=== PATIENT | female | born 1950 | race Caucasian/White ===

== ENCOUNTER 2016-12-29 11:36 | Emergency (ER) | payer MEDICARE, MEDICAID ==
[~2016-12-29 11:36] MED LIST: CALC500T19 PO; CETI5CHW PO; CIPR500T4 PO; DEPA500T3 PO; GABA300C3 PO; GABA400 PO; HCTZ50TA PO; LEVO.025 PO; MOBI15TA PO; MONT10TA2 PO; OMEP20TA39 PO; QUET100 PO; TAB-TAB PO; VALP250UDC PO; VIST50CA PO
[2016-12-29 12:56] VITALS: BP 128/68; PULSE 84; RESP 18; TEMP 98.2; O2SAT 98
[2016-12-29 12:59] VITALS: BP 128/68; PULSE 84; RESP 18; TEMP 98.2; O2SAT 98
[2016-12-29] MEDS ORDERED: VIST25CA PO (13:10)
[2016-12-29] MEDS ORDERED: SERO200T PO (13:10)
[2016-12-29] MEDS ORDERED: DEPA500T3 PO (13:10)
[2016-12-29] MEDS ORDERED: LEVO25TA4 PO (13:10)
[2016-12-29] MEDS ORDERED: MOBI15TA PO (13:10)
[2016-12-29] MEDS ORDERED: SERO100T PO (13:10)
[2016-12-29] MEDS ORDERED: OMEP20TA PO (13:10)
[2016-12-29] MEDS ORDERED: MULT1TAB46 PO (13:10)
[2016-12-29] MEDS ORDERED: GABA300C5 PO (13:10)
--- NOTE | 2016-12-29 13:29 | PD ---
HPI Chief Complaint: Psychiatric Symptoms Time Seen by Provider: 13:29 Travel History International Travel<30 days: No Contact w/Intl Traveler<30days: No Traveled to known affect area: No History of Present Illness HPI 66-year-old female with a history of hypertension, diabetes, COPD was brought to the emergency department under Brooks act for evaluation of threatening to harm someone else. Per the Brooks act report the patient made threats to harm her roommate. The patient states that she has a bad relationship with her roommate and was in an argument with him this morning and did make threats to harm him. She states she has a history of bipolar disorder. She denies any suicidal or homicidal ideations. She complains of having nasal congestion and a dry cough for the past 2 days. States that she's also had some lower extremity redness and swelling for 2 weeks, has a history of recurrent cellulitis on her legs. States that she has a remote history of DVT in the left leg. Denies any chest pain, shortness of breath, fever, chills, nausea, vomiting, abdominal pain. States she was seen at [facility] 2 weeks ago for the cellulitis on her legs and was prescribed antibiotics but was unable to get them filled due to transportation issues. No other complaints. PFSH Past Medical History Bipolar Disorder: Yes Anxiety: Yes Depression: Yes Fibromyalgia: Yes Integumentary: Yes (CELLULITIS IN LEGS ,PHLEBITIS IN LEGS) Thyroid Disease: Yes (HYPERACTIVE) ?: Not Menopausal: Yes : 2 Para: 2 Past Surgical History Section: Yes (1986) Thoracic Surgery: Yes (SPINAL FUSION 1990) Other Surgery: Yes (right carpel tunnel surgery) Social History Alcohol Use: Yes (3 DRINKS EVERY OTHER DAY) Tobacco Use: Yes (2 PPD) Substance Use: No (refuses to cooperate) Allergies-Medications (Allergen,Severity, Reaction): Coded Allergies: Amoxicillin (Verified Allergy, Severe, RASH, 12/29/16) Pharmacist - [facility] [phone] in [place], [place]. [place] (Verified Allergy, Severe, RASH, 12/29/16) Pharmacist - [facility] [phone] in [place], [place]. Reported Meds & Prescriptions Reported Meds & Active Scripts Active Reported Multi Vitamin Daily (Multiple Vitamin) 1 Tab Tab 1 Tab PO DAILY Mobic (Meloxicam) 15 Mg Tab 15 Mg PO DAILY Vistaril (Hydroxyzine Pamoate) 25 Mg Cap 50 Mg PO QID Omeprazole 20 Mg Tab 20 Mg PO DAILY Depakote ER (Divalproex Sodium) 500 Mg James 500 Mg PO DAILY Levothyroxine (Levothyroxine Sodium) 25 Mcg Tab 25 Mcg PO DAILY Seroquel (Quetiapine Fumarate) 200 Mg Tab 200 Mg PO DAILY Seroquel (Quetiapine Fumarate) 100 Mg Tab 100 Mg PO HS Gabapentin 300 Mg Cap 300 Mg PO TID Review of Systems Except as stated in HPI: all other systems reviewed are Neg Physical Exam Narrative GENERAL: Well-nourished and well-developed pleasant female patient in no acute distress who is nontoxic appearing. SKIN: Warm and dry. HEAD: Normocephalic and atraumatic. EYES: No injection, drainage, or hyphema noted. PERRLA. EOMI. ENT: No nasal drainage noted. Oropharynx is clear. NECK: Supple and the trachea is midline. CARDIOVASCULAR: Regular rate and rhythm. RESPIRATORY: Breath sounds are equal bilaterally with no accessory muscle use, wheezing, rhonchi, or crackles. GASTROINTESTINAL: Abdomen is soft, non-tender, and nondistended. MUSCULOSKELETAL: Bilateral lower extremity swelling and erythema with warmth to touch, right worse than left. Negative Mihir's sign. No obvious deformities, cyanosis, or ecchymosis is present throughout the upper and lower extremities. Patient has full range of motion without any signs of neurovascular compromise. DP pulses are 2+ bilaterally. NEUROLOGICAL: Awake, alert, and oriented. Normal speech and gait. Cranial nerves are grossly intact. Data Data Last Documented VS Vital Signs Date Time Temp Pulse Resp B/P Pulse Ox O2 Delivery O2 Flow Rate FiO2 12/29/16 12:59 82 18 12/29/16 12:59 98.2 128/68 98 Room Air Orders Complete Blood Count With Diff (12/29/16 12:39) Comprehensive Metabolic Panel (12/29/16 12:39) Psych Screen (12/29/16 12:39) Drug Screen, Random Urine (12/29/16 12:39) Alcohol (Ethanol) (12/29/16 12:39) Lactic Acid Sepsis Protocol (12/29/16 13:22) Urinalysis - C+S If Indicated (12/29/16 13:22) Chest, Single Ap (12/29/16 13:22) C-Reactive Protein (Crp) (12/29/16 13:22) Westergren Sedimentation Rate (12/29/16 13:22) Us Leg Venous Doppler Bilat (12/29/16 ) Valproic Acid (Depakene) (12/29/16 13:31) Labs Laboratory Tests Test 12/29/16 12/29/16 12/29/16 13:00 13:10 14:00 Urine Opiates Screen NEG Urine Barbiturates Screen NEG Urine Amphetamines Screen NEG Urine Benzodiazepines Screen NEG Urine Cocaine Screen NEG Urine Cannabinoids Screen NEG White Blood Count 5.4 TH/MM3 Red Blood Count 4.66 MIL/MM3 Hemoglobin 13.5 GM/DL Hematocrit 39.7 % Mean Corpuscular Volume 85.4 FL Mean Corpuscular Hemoglobin 29.0 PG Mean Corpuscular Hemoglobin 34.0 % Concent Red Cell Distribution Width 14.0 % Platelet Count 98 TH/MM3 Mean Platelet Volume 9.0 FL Neutrophils (%) (Auto) 67.0 % Lymphocytes (%) (Auto) 23.5 % Monocytes (%) (Auto) 7.9 % Eosinophils (%) (Auto) 0.9 % Basophils (%) (Auto) 0.7 % Neutrophils # (Auto) 3.6 TH/MM3 Lymphocytes # (Auto) 1.3 TH/MM3 Monocytes # (Auto) 0.4 TH/MM3 Eosinophils # (Auto) 0.0 TH/MM3 Basophils # (Auto) 0.0 TH/MM3 CBC Comment AUTO DIFF Differential Comment AUTO DIFF CONFIRMED Toxic Vacuolation PRESENT Platelet Estimate LOW Platelet Morphology Comment NORMAL Sodium Level 143 MEQ/L Potassium Level 3.9 MEQ/L Chloride Level 109 MEQ/L Carbon Dioxide Level 25.3 MEQ/L Anion Gap 9 MEQ/L Blood Urea Nitrogen 20 MG/DL Creatinine 0.74 MG/DL Estimat Glomerular Filtration 79 ML/MIN Rate Random Glucose 82 MG/DL Calcium Level 8.7 MG/DL Total Bilirubin 0.4 MG/DL Aspartate Amino Transf 13 U/L (AST/SGOT) Alanine Aminotransferase 16 U/L (ALT/SGPT) Alkaline Phosphatase 78 U/L Total Protein 7.0 GM/DL Albumin 3.4 GM/DL Ethyl Alcohol Level LESS THAN 3 MG/DL Erythrocyte Sedimentation Rate 17 mm/hr Lactic Acid Level 0.9 mmol/L Valproic Acid (Depakene) Level 35 MCG/ML MDM Medical Decision Making Medical Screen Exam Complete: Yes Emergency Medical Condition: Yes Differential Diagnosis Differential: Depression versus adjustment reaction versus anxiety versus PTSD versus psychosis NOS versus mood disorder NOS versus substance induced mood disorder versus ODD versus adjustment reaction versus schizophrenia versus bipolar disorder versus schizoaffective versus electrolyte abnormality Narrative Course Patient presents under a Brooks act. Vital signs are within normal limits. Patient states she's had nasal congestion for 2 days, lungs are clear to auscultation. She has lower extremity swelling and redness, cellulitis on the lower legs worse on the right leg than the left. We'll check labs and if these are unremarkable she can be treated with oral antibiotics. Psych screen has been ordered. CBC shows thrombocytopenia with platelets of 98, otherwise unremarkable. Sedimentation rate is within normal limits. CMP is unremarkable. Lactic acid is within normal limits. Urine tox is negative. EtOH is negative. Depakote level is low at 35. Patient will be prescribed Keflex and Bactrim for her lower leg cellulitis. She is medically clear for psychiatric evaluation and disposition. Diagnosis Primary Impression: Bilateral lower leg cellulitis Additional Impression: Mood disorder Lori Arias Dec 29, 2016 13:29
[2016-12-29 13:33] LABS: AUTOMATED NEUTROPHIL # 3.6 TH/MM3 (1.8-7.7); BASOPHIL % 0.7 % (0.0-2.0); EOSINOPHIL % 0.9 % (0.0-4.0); HEMATOCRIT 39.7 % (35.0-46.0); LYMPH % 23.5 % (9.0-44.0); LYMPHOCYTE # 1.3 TH/MM3 (1.0-4.8); MEAN CELL VOLUME 85.4 FL (80.0-100.0); MONO % 7.9 % (0.0-8.0); PLATELET COUNT 98 TH/MM3 (150-450); RED BLOOD COUNT 4.66 MIL/MM3 (4.00-5.30); WHITE BLOOD COUNT 5.4 TH/MM3 (4.0-11.0)
[2016-12-29 13:55] LABS: HEMO FLAGS AUTO DIFF
--- NOTE | 2016-12-29 14:03 | RADRPT ---
EXAM DATE/TIME: 12/29/2016 13:29 [facility] COMPARISON: No previous studies available for comparison. INDICATIONS : Bilateral leg redness, pain, swelling. MEDICAL HISTORY : Cellulitis. Phlebitis. Bipolar. Hyperthyroid. SURGICAL HISTORY : section. Spinal fusion. Right carpal tunnel. ENCOUNTER: Initial ACUITY: 2 day PAIN SCORE: 6/10 LOCATION: Bilateral leg. TECHNIQUE: Venous ultrasound of the left and right leg was performed from the inguinal ligament to the proximal calf. Real-time, color Doppler and spectral tracing, compression and augmentation techniques were us ed. FINDINGS: RIGHT LEG: There is normal compressibility of the deep venous system from the inguinal region to the proximal ca lf. No echogenic clot is seen in the lumen of the common femoral, femoral, popliteal, and posterior tibial veins. There is a normal response of the venous system to proximal and distal augmentation an d respiration. LEFT LEG: There is normal compressibility of the deep venous system from the inguinal region to the proximal ca lf. No echogenic clot is seen in the lumen of the common femoral, femoral, popliteal, and posterior tibial veins. There is a normal response of the venous system to proximal and distal augmentation an d respiration. CONCLUSION: Normal examination. Antonia Holguin MD on December 29, 2016 at 14:02 Board Certified Radiologist. This report was verified electronically.
[2016-12-29 14:13] LABS: PLATELET ESTIMATE SMEAR LOW (NORMAL); PLATELET MORPHOLOGY NORMAL (NORMAL); TOXIC VACUOLATION PRESENT (NONE SEEN)
[2016-12-29 14:14] LABS: SCAN/DIFF AUTO DIFF CONFIRMED
[2016-12-29 14:20] LABS: BLOOD UREA NITROGEN 20 MG/DL (7-18); GLOMERULAR FILTRATION RATE 79 ML/MIN (>89)
[2016-12-29 14:21] LABS: ALKALINE PHOSPHATASE 78 U/L (45-117); ALT (GPT) 16 U/L (10-53); ANION GAP 9 MEQ/L (5-15); AST (GOT) 13 U/L (15-37); BICARBONATE 25.3 MEQ/L (21.0-32.0); CHLORIDE 109 MEQ/L (98-107); POTASSIUM 3.9 MEQ/L (3.5-5.1); SODIUM (NA) 143 MEQ/L (136-145); TOTAL BILIRUBIN ADULT 0.4 MG/DL (0.2-1.0)
[2016-12-29 14:23] LABS: ALCOHOL LESS THAN 3 MG/DL (0-5)
--- NOTE | 2016-12-29 14:41 | RADRPT ---
EXAM DATE/TIME: 12/29/2016 14:16 [facility] COMPARISON: CHEST PA & LAT, March 22, 2016, 16:01. INDICATIONS : Cough. Short of breath. MEDICAL HISTORY : Hyperthyroidism. Cellulitis. Phlebitis. SURGICAL HISTORY : Fusion, cervical. Carpal tunnel repair, right. ENCOUNTER: Initial ACUITY: 2 days PAIN SCORE: 0/10 LOCATION: Bilateral chest FINDINGS: A single portable frontal view the chest shows stable scarring within the lingula. No infiltrate or e ffusion. Heart such upper limits of normal in terms of size. Cervical spinal fusion plate noted. CONCLUSION: No acute cardiopulmonary disease. Jorge A Nolan Jr., MD on December 29, 2016 at 14:38 Board Certified Radiologist. This report was verified electronically.
[2016-12-29] MEDS ORDERED: BACT800T5 PO (15:31)
[2016-12-29] MEDS ORDERED: CEPH-460 PO (15:31)
[2016-12-29 15:42] VITALS: BP 124/72; PULSE 74; RESP 18; O2SAT 98
[2016-12-29 15:43] LABS: BACTERIA, URINE MANY /hpf; BLOOD, URINE NEG (NEG); COMMENT (UR) CATH-CULTURE IND; CULTURE IF INDICATED CATH CULTURE IND; GLUCOSE,URINE NEG (NEG); KETONE, URINE NEG (NEG); NITRITE,URINE POS (NEG); PH, URINE 7.5 (5.0-8.5); SQUAMOUS EPITHELIAL CELL URINE <1 /hpf (0-5); URINE COLOR YELLOW (YELLW/STRAW)
[2016-12-29] MEDS: SULFAMETHOXAZOLE-TRIMETHOPRIM DS 800-160 MG TAB PO SCH (21:00)
[2016-12-29] MEDS: CEPHALEXIN MONOHYDRATE 500 MG CAP PO SCH (21:00)
[2016-12-29] MEDS ORDERED: QUEtiapine FUMARATE 100 MG TAB PO SCH (21:00)
[2016-12-29] MEDS: hydrOXYzine PAMOATE 25 MG CAP PO SCH (21:00)
[2016-12-29 22:14] VITALS: BP 183/98; PULSE 73; RESP 19; O2SAT 97
[2016-12-30] MEDS ORDERED: GABAPENTIN 300 MG CAP PO ONE (01:45)
[2016-12-30 05:56] VITALS: BP 128/58; PULSE 89; RESP 18; O2SAT 97
[2016-12-30] MEDS: CEPHALEXIN MONOHYDRATE 500 MG CAP PO SCH (09:00)
[2016-12-30] MEDS: hydrOXYzine PAMOATE 25 MG CAP PO SCH (09:00)
[2016-12-30] MEDS: SULFAMETHOXAZOLE-TRIMETHOPRIM DS 800-160 MG TAB PO SCH (09:00)
--- NOTE | 2016-12-30 09:26 | PD ---
History of Present Illness Chief Complaint: Psychiatric Symptoms Time Seen by Provider: 09:20 Travel History International Travel<30 Days: No Contact w/Intl Traveler<30days: No Known affected area: No Legal Status Legal Status: Brooks Act Brooks Act Signed By: Kb Roman Brooks Act Comment: BA signed by: CARLOS CONDON Badge#[id number], Case#[id number] History of Present Illness: History of Present Illness HPI 66-year-old female with a history of hypertension, diabetes, COPD, bipolar disorder who was brought to the emergency department under Brooks act initiated by CARLOS for evaluation of threatening to harm someone else. Per the Brooks act report the patient made threats to harm her roommate. She did not make any attempts at harming her roommate. EMR is reviewed. Her last contact with [facility] psychiatry was in Feb 2016. At that time she was hospitalized under the care of Dr. Nickerson for treatment of her bipolar disorder. Patient was monitored in J pod and presented no agitation, no behavioral concerns. She is alert, oriented and engaging female in hospital gown. She has very short red hair and appears to be taking care of herself. Speech is clear and logical. No pressure. There is no indication of any psychosis and no nicol. She denies any suicidal ideation and denies any homicidal ideation. Patient admits that she has a very short temper and is prone to making threats against herself and others but says "I do make threats, but I don't act on it." She tells me that she has been having difficulty with a roommate she met while she was in the hospital and that is now wanting to tell her what to do. " He made me mad but I am not going to hurt him". She has been in contact with her sister who is going to help her evict him from the home and she is satisfied with this plan. She reports that she is medication compliant and has been sleeping and eating well. . PFSH Past Medical History Bipolar Disorder: Yes Anxiety: Yes Depression: Yes Fibromyalgia: Yes Integumentary: Yes (CELLULITIS IN LEGS ,PHLEBITIS IN LEGS) Thyroid Disease: Yes (HYPERACTIVE) ?: Not Menopausal: Yes : 2 Para: 2 Past Surgical History Section: Yes (1986) Thoracic Surgery: Yes (SPINAL FUSION 1990) Other Surgery: Yes (right carpel tunnel surgery) Psychiatric History Psychiatric History Hx Psychiatric Treatment: Last admission in 2015. has had multiple admissions for treatmetn of bipolar disorder History of Inpatient Treatment: Yes Guns or firearms in home: No Social History Single female. On disability. Lives with her mother salbador a roommate. Hx Alcohol Use: Yes (3 DRINKS EVERY OTHER DAY) Hx Tobacco Use: Yes (2 PPD) Hx Substance Use: Yes (HX of etoh abuse, 9 yrs sober) Substance Use Type: Alcohol Other Substances Used: refuses to cooperate Hx of Substance Use Treatment: No Family Psychiatric History Negative Allergies-Medications (Allergen,Severity, Reaction): Coded Allergies: Amoxicillin (Verified Allergy, Severe, RASH, 12/29/16) Pharmacist - [facility] Pharmacist [phone] in [place], [place]. [place] (Verified Allergy, Severe, RASH, 12/29/16) Pharmacist - [facility] Pharmacist [phone] in [place], [place]. Reported Meds & Prescriptions Reported Meds & Active Scripts Active Bactrim DS (Sulfamethoxazole-Trimethoprim) 800-160 Mg Tab 1 Tab PO BID Keflex (Cephalexin) 500 Mg Cap 500 Mg PO Q12H 10 Days Reported Multi Vitamin Daily (Multiple Vitamin) 1 Tab Tab 1 Tab PO DAILY Mobic (Meloxicam) 15 Mg Tab 15 Mg PO DAILY Vistaril (Hydroxyzine Pamoate) 25 Mg Cap 50 Mg PO QID Omeprazole 20 Mg Tab 20 Mg PO DAILY Depakote ER (Divalproex Sodium) 500 Mg James 500 Mg PO DAILY Levothyroxine (Levothyroxine Sodium) 25 Mcg Tab 25 Mcg PO DAILY Seroquel (Quetiapine Fumarate) 200 Mg Tab 200 Mg PO DAILY Seroquel (Quetiapine Fumarate) 100 Mg Tab 100 Mg PO HS Gabapentin 300 Mg Cap 300 Mg PO TID Review of Systems Except as stated in HPI: all other systems reviewed are Neg Cardiovascular: COMPLAINS OF: Lower Extremity Edema Exam Alert: Yes [place]: Person (ox4) Mood: Calm Affect: Appropriate Speech: Clear, Logical Eye Contact: Normal Memory Intact: Comment (No impairment) Hallucinations: Other (negative) Delusions: No Suicidal: Ideation (deneis any) Homicidal: Ideation (denies any) Insight/Judgement Fair. Not impaired. MDM Medical Decision Making Medical Record Reviewed: Yes Assessment/Plan 66 year old female with hx of bipolar disorder under a BA after she made threats to harm her roommate in context of an argument. The patient denies any intent to harm anyone at this time and has a plan to address current issues with the roommate including initiating eviction process. She has also talked with her sister who is going to help her with this process. Does not meet BA criteria and therefore will lift. provide support . [facility]. Orders Complete Blood Count With Diff (12/29/16 12:39) Comprehensive Metabolic Panel (12/29/16 12:39) Psych Screen (12/29/16 12:39) Drug Screen, Random Urine (12/29/16 12:39) Alcohol (Ethanol) (12/29/16 12:39) Lactic Acid Sepsis Protocol (12/29/16 13:22) Urinalysis - C+S If Indicated (12/29/16 13:22) Chest, Single Ap (12/29/16 13:22) Westergren Sedimentation Rate (12/29/16 13:22) Us Leg Venous Doppler Bilat (12/29/16 ) Valproic Acid (Depakene) (12/29/16 13:31) Cephalexin (Keflex) (12/29/16 21:00) Sulfamet-Trimeth Ds 800-160 Mg (Bactrim (12/29/16 21:00) Urine Culture (12/29/16 13:00) Hydroxyzine Pamoate (Vistaril) (12/29/16 21:00) Quetiapine (Seroquel) (12/29/16 21:00) Diet Regular Basic (12/30/16 Breakfast) Gabapentin (Neurontin) (12/30/16 01:45) Results Vital Signs Date Time Temp Pulse Resp B/P Pulse Ox O2 Delivery O2 Flow Rate FiO2 12/30/16 05:56 89 18 128/58 97 Room Air 12/29/16 22:14 73 19 183/98 97 Room Air 12/29/16 15:42 74 18 124/72 98 Room Air 12/29/16 12:59 82 18 12/29/16 12:59 98.2 84 18 128/68 98 Room Air 12/29/16 12:56 98.2 84 18 128/68 98 Laboratory Tests Test 12/29/16 12/29/16 12/29/16 13:00 13:10 14:00 Urine Color YELLOW Urine Turbidity CLEAR Urine pH 7.5 Urine Specific [place] 1.019 Urine Protein NEG Urine Glucose (UA) NEG Urine Ketones NEG Urine Occult Blood NEG Urine Nitrite POS Urine Bilirubin NEG Urine Urobilinogen LESS THAN 2.0 Urine Leukocyte Esterase MOD Urine RBC 2 Urine WBC 41 Urine Squamous Epithelial <1 Cells Urine Bacteria MANY Microscopic Urinalysis Comment CATH-CULTURE IND Urine Opiates Screen NEG Urine Barbiturates Screen NEG Urine Amphetamines Screen NEG Urine Benzodiazepines Screen NEG Urine Cocaine Screen NEG Urine Cannabinoids Screen NEG White Blood Count 5.4 Red Blood Count 4.66 Hemoglobin 13.5 Hematocrit 39.7 Mean Corpuscular Volume 85.4 Mean Corpuscular Hemoglobin 29.0 Mean Corpuscular Hemoglobin 34.0 Concent Red Cell Distribution Width 14.0 Platelet Count 98 Mean Platelet Volume 9.0 Neutrophils (%) (Auto) 67.0 Lymphocytes (%) (Auto) 23.5 Monocytes (%) (Auto) 7.9 Eosinophils (%) (Auto) 0.9 Basophils (%) (Auto) 0.7 Neutrophils # (Auto) 3.6 Lymphocytes # (Auto) 1.3 Monocytes # (Auto) 0.4 Eosinophils # (Auto) 0.0 Basophils # (Auto) 0.0 CBC Comment AUTO DIFF Differential Comment AUTO DIFF CONFIRMED Toxic Vacuolation PRESENT Platelet Estimate LOW Platelet Morphology Comment NORMAL Sodium Level 143 Potassium Level 3.9 Chloride Level 109 Carbon Dioxide Level 25.3 Anion Gap 9 Blood Urea Nitrogen 20 Creatinine 0.74 Estimat Glomerular Filtration 79 Rate Random Glucose 82 Calcium Level 8.7 Total Bilirubin 0.4 Aspartate Amino Transf 13 (AST/SGOT) Alanine Aminotransferase 16 (ALT/SGPT) Alkaline Phosphatase 78 Total Protein 7.0 Albumin 3.4 Ethyl Alcohol Level LESS THAN 3 Erythrocyte Sedimentation Rate 17 Lactic Acid Level 0.9 Valproic Acid (Depakene) Level 35 Date/Time Procedure Status Source Growth 12/29/16 13:00 Urine Culture Received Urine Catheterized Urine Pending Diagnosis Primary Impression: Bipolar disorder Additional Impression: Bilateral lower leg cellulitis Psychiatrically Cleared: Yes Referrals: UNKNOWN (PCP) Departure Forms: Tests/Procedures Patient Instructions: General Instructions Med/ Other Pt Specific Info: No Change to Meds Prescriptions Sulfamethoxazole-Trimethoprim (Bactrim DS)800-160 Mg Tab1 Tab PO BID #20 TAB Ref 0 Prov:Grabiel Rios MD 12/29/16 Cephalexin (Keflex)500 Mg Hgx510 Mg PO Q12H 10 Days Ref 0 Prov:Grabiel Rios MD 12/29/16 Disposition: 01 DISCHARGE HOME Condition: Stable Problem Qualifiers Primary Impression: Bipolar disorder Qualified Code: F31.61 - Bipolar disorder, current episode mixed, mild Nuzhat Means [facility] Dec 30, 2016 09:25
== END 2016-12-30 09:51 | disposition home or self-care (01) ==
LOC: NEPD 13:00 → NEPJ 12-30 09:51
DX: F31.9 Bipolar disorder, unspecified (principal); L03.116 Cellulitis of left lower limb; L03.115 Cellulitis of right lower limb; M79.89 Other specified soft tissue disorders; M79.7 Fibromyalgia; J44.9 Chronic obstructive pulmonary disease, unspecified; I10 Essential (primary) hypertension; E11.9 Type 2 diabetes mellitus without complications; E05.90 Thyrotoxicosis, unspecified without thyrotoxic crisis or storm; N39.0 Urinary tract infection, site not specified; B96.1 Klebsiella pneumoniae [K. pneumoniae] as the cause of diseases classified elsewhere
CPT/HCPCS: 71010; 80053; 80164; 80307; 81001; 83605; 85025; 85652; 87077; 87086; 87186; 93970; 99285; Q0177